=== PATIENT | male | born 1950 | race Caucasian/White ===

== ENCOUNTER → 2016-05-01 | Outpatient (CLI) | payer MEDICARE, OTHER ==
[~2016-05-01] MED LIST: AMBIEN PO; AMBIEN10 MG PO; ANTIBIOTIC; APAP325 M1 PO; ASPIRIN81 M2 PO; ASPIRINEC PO; BISAC-EVAC5 MG PO; CIPRO PO; COREG PO; COREG12.5 MG PO; COUMADIN5 MG PO; COUMADIN6 MG PO; DIOVAN PO; FLAGYL PO; FLOMAX0.4 M1 PO; HYDROCODON-ACE1 EAC4 PO; HYDROCODON-ACE1 EAC5 PO; HYZAAR 100-25 T1 TA1 PO; HYZAAR 100-25 T1 TAB PO; KEFLEX500 MG PO; LEVAQUIN PO; LEXAPRO PO; LORTAB 5/500 TA1 TA1 PO; LORTAB 7.5-5001 TAB PO; LOSARTAN-HCTZ1 EACH PO; METRONIDAZOLE PO; MILK OF MAGNESIA PO; MIRALAX17 GM PO; NORCO 10/3251 TAB PO; NORCO 5/325 TAB1 TAB PO; OMEPRAZOLE40 M1 PO; OMEPRAZOLE40 MG PO; PERCOCET5/325 PO; PHENERGAN PO; PRILOSEC PO; PRILOSEC2.5 MG; PROTONIX PO; SENOKOT S1 TAB PO; TRAMADOL HCL50 M1 PO; TRAMADOL HCL50 M2 PO; ULTRAM PO; VICODIN 5/500 T1 TAB PO; WELLBUTRIN PO; ZANTAC150 MG PO
--- NOTE | ~2016-05-01 | ST ---
Unit #: [id number] #: [id number] Patient: GAVI CASTLE [id number] [address] [address] [id number] O MR#: [id number] NAME: GAVI CATSLE. : 1950 SEX: M STUDY DATE/TIME: 05/01/2016 UNIT: [facility] ROOM: STUDY DESCRIPTION: Stress Test Attending Physician: Ronna Thomason M.D. Referring Physician: Ronna Thomason M.D. Primary Care Physician: Anival Ray M.D. CARDIOLOGY REPORT REASON FOR TEST Exertional shortness of breath. DESCRIPTION Baseline EKG shows normal sinus rhythm, first degree AV block with right bundle branch block. The patient exercised on the treadmill according to Aiden protocol for a total of 8 minutes 49 seconds achieving 10.40 METs with a resting heart rate of 66 beats/minute and a peak heart rate of 139 beats/minute representing 89% of the maximum predicted heart rate. During the test, the patient did experience shortness of breath which did increase in intensity at peak exercise. However, he denied any complaints of chest pain. There were no ST segment changes suggestive of ischemia. There were frequent PVCs which were multifocal, primarily with exercise. However, some persisted into the recovery period. The test was stopped due to target heart rate achieved and shortness of breath. IMPRESSION 1. Nondiagnostic EKG portion of exercise Cardiolite. 2. No ST segment changes suggestive of ischemia. 3. The patient denied any complaints of chest pain throughout the testing period. However, he was extremely short of breath which worsened at peak exercise. The test was stopped secondary to this reason and target heart rate achieved. 4. There were multifocal and frequent PVCs during the exercise period as well as some PVCs in the recovery period. 5. Please correlate with nuclear imaging. Dictated by... Lala Gaspar A.P.R.N. for Ronna Thomason M.D. LMW/df Unit #: [id number] #: [id number] Patient: GAVI CASTLE TD: 05/01/2016 11:59 JOB #: [id number] CARDIOLOGY REPORT Page 1 of 1 X Lala Gaspar APRN CARDIOLOGY REPORT
--- NOTE | ~2016-05-01 | TH ---
Unit #: [id number] #: [id number] Patient: GAVI CASTLE [id number] [address] [address] [id number] O MR#: [id number] NAME: GAVI CASTLE. : 1950 SEX: M STUDY DATE/TIME: 05/01/2016 UNIT: [facility] ROOM: STUDY DESCRIPTION: Nuclear Study Attending Physician: Ronna Thomason M.D. Referring Physician: Ronna Thomason M.D. Primary Care Physician: Anival Ray M.D. CARDIOLOGY REPORT EXAM Exercise Cardiolite Stress Test - Nuclear Portion DESCRIPTION Using technetium 99m labeled Cardiolite, rest and stress SPECT images were obtained. Multiple SPECT images were obtained in various views including horizontal and vertical long axis and short axis views of the left ventricle. Images were obtained by gated SPECT method. The patient was administered 10.57 mCi of Cardiolite at rest. The patient was administered 30.1 mCi of Cardiolite at peak exercise. Total exercise time is 8 minutes 49 seconds. On the stress images, there is normal perfusion noted. The rest images show normal perfusion. Comparing rest and stress images, there is no stress-induced ischemia noted. The left ventricular ejection fraction is calculated to be 55%. There is no focal wall motion abnormality seen. CONCLUSION 1. No stress-induced ischemia noted. 2. The left ventricular ejection fraction is calculated to be 55%. 3. There is no focal wall motion abnormality seen. 4. Normal exercise Cardiolite stress test. Dictated by... Tigist Dorsey TD: 05/01/2016 12:16 JOB #: [id number] Unit #: [id number] #: [id number] Patient: GAVI CASTLE CARDIOLOGY REPORT Page 1 of 1 X Ronna Thomason MD <ELECTRONICALLY SIGNED> 08/30/16 [id number] CARDIOLOGY REPORT
== END | disposition home or self-care (01) ==
LOC: CNUC 08:15
DX: R06.02 Shortness of breath (principal)
CPT/HCPCS: 78452; 93017; A9500